=== PATIENT | male | born 1995 | race Caucasian/White ===

== ENCOUNTER 2017-08-06 22:45 | Emergency (ER) | payer OTHER ==
[2017-08-07 00:33] VITALS: BP 159/94
== END 2017-08-07 00:33 | disposition home or self-care (01) ==
LOC: ED 22:45
DX: L70.0 Acne vulgaris (principal); B07.8 Other viral warts; M79.675 Pain in left toe(s)

== ENCOUNTER 2019-03-17 20:30 | Emergency (ER) | payer OTHER ==
[~2019-03-17] VITALS: Ht 182.9 cm; Wt 110.7 kg
[2019-03-17 20:55] VITALS: Ht 182.9 cm; Wt 110.7 kg
[2019-03-17 22:47] VITALS: BP 149/69
== END 2019-03-17 22:47 | disposition home or self-care (01) ==
LOC: ED 20:30
DX: T63.441A Toxic effect of venom of bees, accidental (unintentional), initial encounter (principal); M79.661 Pain in right lower leg; Y92.89 Other specified places as the place of occurrence of the external cause
CPT/HCPCS: J0696; J1200

== ENCOUNTER 2019-06-16 16:31 | Emergency (ER) | payer OTHER ==
[~2019-06-16] VITALS: Ht 182.9 cm; Wt 109.8 kg
[2019-06-16 16:35] VITALS: BP 142/87; Ht 182.9 cm; Wt 109.8 kg
== END 2019-06-16 18:51 | disposition home or self-care (01) ==
LOC: ED 16:31
DX: J03.90 Acute tonsillitis, unspecified (principal); R51 Headache
CPT/HCPCS: 87804

== ENCOUNTER 2019-09-24 08:20 | Emergency (ER) | payer OTHER ==
[~2019-09-24] VITALS: Ht 182.9 cm; Wt 108.9 kg
[2019-09-24 08:25] VITALS: Ht 182.9 cm; Wt 108.9 kg
[2019-09-24 11:09] VITALS: BP 140/64
== END 2019-09-24 11:09 | disposition home or self-care (01) ==
LOC: ED 08:20
DX: J36 Peritonsillar abscess (principal); J03.90 Acute tonsillitis, unspecified
CPT/HCPCS: J0696; J1100

== ENCOUNTER 2020-08-04 05:56 | Emergency (ER) | payer OTHER, SELFPAY ==
[~2020-08-04] VITALS: Ht 182.9 cm; Wt 107.1 kg
[2020-08-04 05:58] VITALS: Ht 182.9 cm; Wt 107.1 kg
[2020-08-04 07:14] VITALS: BP 138/88
== END 2020-08-04 07:14 | disposition home or self-care (01) ==
LOC: ED 05:56
DX: J03.90 Acute tonsillitis, unspecified (principal)